=== PATIENT | male | born 1945 | race Hispanic/Latino ===

== ENCOUNTER 2024-01-30 04:24 | Emergency (ER) | payer SELFPAY ==
[2024-01-30 05:00] LABS: #Basophils Less than 0.03 10x3/uL (0.0-0.2); %Basophils 0.1 % (0.0-1.0); %Eosinophils 0.8 % (0.0-10.0); %Lymphocytes 18.1 % (21.0-51.0); %Monocytes 7.4 % (0.0-10.0); %Neutrophils 73.2 % (42.0-75.0); Hematocrit 46.5 % (42.0-52.0); Hemoglobin 15.4 g/dL (14.0-18.0); Mean Corpuscular HGB CONC 33.1 g/dL (32.0-36.0); Mean Corpuscular Hemoglobin 31.6 pg (27.0-31.0); Mean Corpuscular Volume 95.5 fL (78.0-98.0); Mean Platelet Volume 9.1 fL (7.4-10.4); Platelet Count 230 10x3/uL (130-400); RBC Distribution Width 13.6 % (11.5-14.5); Red Blood Cell (RBC) Count 4.87 mill/uL (4.70-6.10)
[2024-01-30 05:16] LABS: ALT (SGPT) 12 U/L (8-55); AST (SGOT) 14 U/L (5-34); Albumin 3.5 g/dL (3.4-4.8); Alkaline Phosphatase 55 U/L (40-110); Anion Gap 10 mmol/L (10-20); BUN (Urea Nitrogen) 21 mg/dL (8.4-25.7); Bilirubin, Total 1.4 mg/dL (0.2-1.2); Calc. Creatinine Clearance 0 mL/min (70-130); Calcium 8.8 mg/dL (7.8-10.44); Carbon Dioxide 22 mmol/L (23-31); Chloride 111 mmol/L (98-107); Estimated GFR 83; Globulin 3.2 g/dL (2.4-3.5); Glucose 100 mg/dL (83-110); Lipase 20 U/L (8-78); Potassium 3.6 mmol/L (3.5-5.1); Protein, Total 6.7 g/dL (5.8-8.1); Sodium 139 mmol/L (136-145)
[2024-01-30 05:40] LABS: Bilirubin Negative (Negative); Blood, Urine 3+ (Negative); CAUTI Indications for Culture Dysuria,urgency,freq; Clarity Clear (Clear); Glucose, Urine (Dipstick) Normal (Negative); Ketone, Urine Negative (Negative); Leukocyte 75 Leu/uL (Negative); Nitrite Negative (Negative); Protein, Urine (Dipstick) 20 mg/dL (Neg-Trace); RBC/HPF Greater than 50 HPF (0-3); Specific Gravity, Urine 1.014 (1.002-1.036); Squamous Epithelial 0-3 HPF (0-3); Urobilinogen Normal mg/dL (Less than 2); pH, Urine 5.5 (5.0-9.0)
[2024-01-30 05:42] LABS: Bacteria/HPF 1+ HPF (None Seen)
[2024-01-30 05:43] LABS: Urine Culture Reflex Yes Yes
[2024-01-30] MEDS ORDERED: Iopamidol 370 76% 100 ML VIAL ONE (09:39)
== END 2024-01-30 06:17 | disposition home or self-care (01) ==
LOC: ERS 04:24
DX: N13.2 Hydronephrosis with renal and ureteral calculous obstruction (principal); N21.0 Calculus in bladder
CPT/HCPCS: 74177; 80053; 81001; 83690; 85025; 87086

== ENCOUNTER 2024-02-05 10:27 | Emergency (ER) | payer SELFPAY | END 2024-02-05 11:40 | disposition home or self-care (01) | LOC: ERS 10:27 | DX: R53.1 Weakness (principal); R20.2 Paresthesia of skin; R29.700 NIHSS score 0; F17.210 Nicotine dependence, cigarettes, uncomplicated | CPT/HCPCS: 99284 ==